=== PATIENT | male | born 1940 | race Caucasian/White ===

== ENCOUNTER 2019-08-23 12:56 | Emergency (ER) | payer BC, MEDICARE ==
[2019-08-23 13:49] VITALS: BP 139/69
[2019-08-23] MEDS ORDERED: Acetaminophen TAB* 325 MG PO ONE (14:48)
--- NOTE | 2019-08-23 15:12 | UC ---
Throat Pain/Nasal Addy HPI - HPI Summary HPI Summary: 78-year-old male comes in with a chief complaint of upper respiratory tract infection symptoms for one week. Started with cough is gotten chest congestion runny nose. He also has a fever today with a fever he became confused. He does have a frontal headache. He has chronic neck pain which he does have today. Denies feeling short of breath. He is here with his who has upper respiratory tract infection symptoms also. - History of Current Complaint Chief Complaint: UCGeneralIllness Stated Complaint: COUGH SORE THROAT Time Seen by Provider: 08/23/19 14:53 Pain Intensity: 0 - Allergies/Home Medications Allergies/Adverse Reactions: Allergies Allergy/AdvReac Type Severity Reaction Status Date / Time aspirin Allergy Bleeding Verified 08/23/19 13:50 Beta-Blockers Allergy Altered Verified 08/23/19 13:50 (Beta-Adrenergic Bloc Mental Status PMH/Surg Hx/FS Hx/Imm Hx Previously Healthy: Yes - Surgical History Surgical History: Yes Surgery Procedure, Year, and Place: shoulder x 2, spinal fusion, cataract - Family History Known Family History: Positive: Non-Contributory - Social History Alcohol Use: Rare Substance Use Type: None Smoking Status (MU): Never Smoked Tobacco Review of Systems All Other Systems Reviewed And Are Negative: Yes Constitutional: Positive: Fever, Other - SEE HPI Skin: Positive: Negative Eyes: Positive: Negative ENT: Positive: Sore Throat, Nasal Discharge, Sinus Congestion, Sinus Pain/ Tenderness Respiratory: Positive: Cough, Other - SEE HPI Cardiovascular: Positive: Negative Gastrointestinal: Positive: Negative Motor: Positive: Negative Neurovascular: Positive: Negative Musculoskeletal: Positive: Negative Neurological: Positive: Headache, Other - SEE HPI Psychological: Positive: Negative Is Patient Immunocompromised?: No Physical Exam Triage Information Reviewed: Yes Appearance: No Pain Distress, Well-Nourished, Ill-Appearing - MILD Vital Signs: Initial Vital Signs Temp 100.1 F 08/23/19 13:45 Pulse 89 08/23/19 13:45 Resp 20 08/23/19 13:45 BP 139/69 08/23/19 13:45 Pulse Ox 97 08/23/19 13:45 Vital Signs Reviewed: Yes Eye Exam: Normal Eyes: Positive: Conjunctiva Clear ENT: Positive: Pharyngeal erythema, Nasal congestion, Nasal drainage, TMs normal Neck: Positive: Supple Respiratory: Positive: No respiratory distress, No accessory muscle use, Rhonchi - RARE Cardiovascular: Positive: RRR Musculoskeletal: Positive: Strength Intact, ROM Intact, No Edema - NO CALF TENDERNESS Neurological: Positive: Alert Psychological: Positive: Other: - Patient has mild confusion. He is awake and alert. Skin Exam: Normal Throat Pain/Nasal Course/Dx - Course Course Of Treatment: DISCUSSED VIRAL VERSES BACTERIAL INFECTIONS AND THE ROLE OF ANTIBIOTICS. THE PATIENT PREFERS TO BE ON ANTIBIOTICS AT THIS TIME. Patient has mild confusion. He is awake and alert. He is not hypoxic. Did have a fever here of 100.1 which was treated with acetaminophen. There was some rhonchi on examination. I discussed about whether or not to get a chest x- ray at this time with the discussion with the patient and his they prefer to be treated initially and then consider an x-ray if not improving or worse. With the know that confusion can be a sign of infection that may need further evaluation emergency Department. I let the patient and the patient's notes that I recommend that if his confusion is not clear when his fever comes down he should go to the emergency department. I also recommended that if he appears short of breath or appears ill they should go to the emergency department. Otherwise following up with the primary care doctor. - Differential Dx/Diagnosis Provider Diagnosis: Sinusitis, Bronchitis Discharge ED - Sign-Out/Discharge Documenting (check all that apply): Patient Departure All imaging exams completed and their final reports reviewed: No Studies - Discharge Plan Condition: Stable Disposition: HOME Prescriptions: DOXYcycline CAP(*) [DOXYcycline 100MG CAP(*)] 100 mg PO BID #20 cap Patient Education Materials: Sinusitis (ED), Acute Bronchitis (ED) Referrals: [facility] [place] [facility]ICIAN REFERRAL [Outside] Additional Instructions: FOLLOW UP WITH YOUR DOCTOR. GO TO THE EMERGENCY DEPARTMENT IF NOT IMPROVED OR WORSE; SHORTNESS OF BREATH, CONFUSION, ILL APPEARANCE OR ANY QUESTIONS OR CONCERNS. - Billing Disposition and Condition Condition: STABLE Disposition: Home
== END 2019-08-23 15:30 | disposition home or self-care (01) ==
LOC: UCEAST 12:56
DX: J32.9 Chronic sinusitis, unspecified (principal); J40 Bronchitis, not specified as acute or chronic; G89.29 Other chronic pain; M54.2 Cervicalgia; Z88.6 Allergy status to analgesic agent; Z88.8 Allergy status to other drugs, medicaments and biological substances
CPT/HCPCS: 99202; A9270-GY; G0463

== ENCOUNTER 2019-08-23 22:23 | Observation (INO) | payer MEDICARE ==
[2019-08-23] MEDS ORDERED: NS 0.9% 1000 ML** 1,000 ML IV.FLUID IV ONE (23:11)
[2019-08-23] MEDS ORDERED: Acetaminophen TAB* 325 MG PO ONE (23:13)
--- NOTE | 2019-08-23 23:14 | ED ---
Complex/Multi-Sys Presentation - HPI Summary HPI Summary: 78-year-old male presents with cough for the past couple days. He noted a fever today. He was having increasing confusion per . states been having difficulty with word finding since fever spiked. He states he is very weak. He states that he did have chest but that has resolved. He states he is short of breath when he coughs. Has been a productive cough. He states he's had no appetite. Has not taken his pills today. He was seen at urgent care today and started on doxycycline and no imaging was done. is also sick. He denies any urinary symptoms. no abdominal pain. no diarrhea. admits to headache. no history of asthma or copd. is not a smoker. - History Of Current Complaint Chief Complaint: EDAltMentalStatus Time Seen by Provider: 08/23/19 22:54 - Allergies/Home Medications Allergies/Adverse Reactions: Allergies Allergy/AdvReac Type Severity Reaction Status Date / Time aspirin Allergy Bleeding Verified 08/23/19 13:50 Beta-Blockers Allergy Altered Verified 08/23/19 13:50 (Beta-Adrenergic Bloc Mental Status Home Medications: Home Medications Diclofenac Sodium 1 applic TOPICAL DAILY PRN 08/24/19 [History Confirmed ] Omeprazole 20 mg PO DAILY 08/24/19 [History Confirmed 08/24/19] Tramadol HCl 1 tab PO TID PRN 08/24/19 [History Confirmed 08/24/19] Vit A/Vit C/Vit E/Zinc/Copper [Preservision Areds Softgel] 1 each PO DAILY 08/24 [History Confirmed 08/24/19] amLODIPine TAB* [Norvasc 5 mg TAB*] 5 mg PO DAILY 08/24/19 [History Confirmed ] lisinopriL [Lisinopril] 20 mg PO DAILY 08/24/19 [History Confirmed 08/24/19] PMH/Surg Hx/FS Hx/Imm Hx Endocrine/Hematology History: Denies: Hx Anticoagulant Therapy Cardiovascular History: Reports: Hx Hypertension - Surgical History Surgery Procedure, Year, and Place: shoulder x 2, spinal fusion, cataract Infectious Disease History: No Infectious Disease History: Denies: Traveled Outside the [place] in Last 30 Days - Family History Known Family History: Positive: Non-Contributory - Social History Alcohol Use: Rare Substance Use Type: Reports: None Smoking Status (MU): Never Smoked Tobacco Review of Systems Positive: Fever, Chills Positive: Chest Pain - resolved Positive: Shortness Of Breath, Cough Positive: Nausea Neurological: Other - confusion Positive: Weakness All Other Systems Reviewed And Are Negative: Yes Physical Exam Triage Information Reviewed: Yes Vital Signs On Initial Exam: Initial Vitals Temp Pulse Resp BP Pulse Ox 101.1 F 104 20 138/94 91 08/23/19 22:41 08/23/19 22:41 08/23/19 22:41 08/23/19 22:41 08/23/19 22:41 Vital Signs Reviewed: Yes Appearance: Positive: Ill-Appearing Skin: Positive: Warm, Dry Head/Face: Positive: Normal Head/Face Inspection Eyes: Positive: Normal, EOMI, KALANI, Conjunctiva Clear ENT: Positive: Pharynx normal, TMs normal Respiratory/Lung Sounds: Positive: Breath Sounds Present, Other - crackles throughout Cardiovascular: Positive: Normal, RRR Abdomen Description: Positive: Nontender, Soft Bowel Sounds: Positive: Present Musculoskeletal: Positive: Normal Neurological: Positive: Sensory/Motor Intact, Alert, Oriented to Person Place, Time, CN Intact II-III Psychiatric: Positive: Normal Procedures - Sedation Patient Received Moderate/Deep Sedation with Procedure: No Diagnostics - Vital Signs Vital Signs Temp Pulse Resp BP Pulse Ox 08/23/19 22:41 101.1 F 104 20 138/94 91 - Laboratory Result Diagrams: 08/23/19 23:15 08/23/19 23:15 Lab Statement: Any lab studies that have been ordered have been reviewed, and results considered in the medical decision making process. - Radiology chest Radiology Interpretation Completed By: ED Physician Summary of Radiographic Findings: possible pnuemonia - CT brain CT Interpretation Completed By: Radiologist Summary of CT Findings: IMPRESSION: No acute intracranial abnormality. - EKG No standard instances Cardiac Rate: Tachycardia EKG Rhythm: Sinus Tachycardia Summary of EKG Findings: sinus tachycardia Re-Evaluation - Re-Evaluation First Eval Re-Evaluation Time: 23:45 Comment: discussed results, crackles still noted on exam, patient is more alert now that fever decreased Complex Multi-Symp Course/Dx Course Of Treatment: 78-year-old male presents with cough for the past couple days. had a fever and has been having increasing confusion per . states been having difficulty with word finding since fever spiked. He states he is very weak. He states that he did have chest pain but that has resolved. He states he is short of breath when he coughs. Has been a productive cough. is also sick. On exam has a normal neuro exam. He is slow to answer questions but does so appropriately. No neuro deficit noted. lungs crackles throughout. has productive cough noted and patient appears ill. gave fluids and Tylenol. wbc 24. troponin .03. sodium 127. bnp normal. urine no infection. Chest x-ray shows potential pneumonia. gave rocephin and azithromycin. required some oxygen support as stats are in high 80s to 90s without so placed on 2 liters. was initially tachycardia and had fever which resolved with fluids and tyenlol. influenza neg. CT brain normal. AMS likely due to febrile illness as became more alert as fever came down. will admit for pneumonia and sepsis - Diagnoses Differential Diagnoses/HQI/PQRI: Sepsis, Urinary Tract Infection, Other - pnuemonia Provider Diagnoses: Pneumonia, Sepsis, Confusion - Critical Care Time Critical Care Time: 30-74 min - 45 mins Discharge ED - Sign-Out/Discharge Documenting (check all that apply): Patient Departure - Discharge Plan Condition: Stable Disposition: ADMITTED TO [facility] - Billing Disposition and Condition Condition: STABLE Disposition: Admitted to [facility]
[2019-08-23 23:29] LABS: Hematocrit 34 % (42-52); Hemoglobin 12.4 g/dL (14.0-18.0); Mean Corpuscular HGB Conc 36 g/dL (31-36); Mean Corpuscular Hemoglobin 34 pg (27-31); Mean Corpuscular Volume 94 fL (80-94); Mean Platelet Volume 6.7 fL (7.4-10.4); Platelet Count 409 10^3/uL (150-450); Red Blood Count 3.64 10^6 /uL (4.18-5.48); Red Cell Distribution Width 13 % (10-15); White Blood Count 24.6 10^3/uL (3.5-10.8)
[2019-08-23 23:42] LABS: INR 1.25 (0.82-1.09)
[2019-08-23 23:49] LABS: ALT 21 U/L (7-52); AST 24 U/L (13-39); Albumin 3.8 g/dL (3.2-5.2); Albumin/Globulin Ratio 1.3 (1-3); Alkaline Phosphatase 72 U/L (34-104); Anion Gap 8 mmol/L (2-11); BUN/Creatinine Ratio 14.9 (8-20); Blood Urea Nitrogen 13 mg/dL (6-24); CO2 Carbon Dioxide 23 mmol/L (22-32); Calcium 8.6 mg/dL (8.6-10.3); Chloride 96 mmol/L (101-111); EGFR African American 102.2 (>60); EGFR Non-African American 84.4 (>60); Globulin 2.9 g/dL (2-4); Glucose 125 mg/dL (70-100); Potassium 3.9 mmol/L (3.5-5.0); Sodium 127 mmol/L (135-145); Total Protein 6.7 g/dL (6.4-8.9)
[2019-08-23 23:50] LABS: Urine Appearance Clear; Urine Bilirubin Negative (Negative); Urine Blood 1+ (Negative); Urine Color Yellow; Urine Glucose Negative (Negative); Urine Ketones Trace (Negative); Urine Nitrite Negative (Negative); Urine Protein Negative (Negative); Urine Specific Gravity 1.014 (1.010-1.030); Urine Urobilinogen Negative (Negative)
[2019-08-23 23:52] LABS: Urine Bacteria Absent (Absent); Urine Red Blood Cell 2+(6-10/hpf) (Absent); Urine White Blood Cell Absent (Absent)
[2019-08-23 23:53] LABS: Troponin I 0.03 ng/mL (<0.03)
[2019-08-24 00:03] LABS: Influenza A Molecular NEGATIVE (Negative); Influenza B Molecular NEGATIVE (Negative)
[2019-08-24 00:03] LABS: ABS Basophils 0.1 10^3/ul (0-0.2); ABS Lymphocytes 0.9 10^3/ul (1.0-4.8); ABS Monocytes 1.8 10^3/ul (0-0.8); ABS Neutrophils 21.8 10^3/ul (1.5-7.7); Lymphocyte % 3.7 %
[2019-08-24] MEDS ORDERED: cefTRIAXone(*) 1 GM in NS 0.9% 50 ML* 50 ML IVPB ONE (00:06)
[2019-08-24] MEDS ORDERED: Azithromycin 500 mg/250 ml NS 500 MG/250 ML BAG IVPB ONE (00:06)
[2019-08-24] MEDS ORDERED: Acetaminophen TAB* 325 MG PO PRN (00:59)
[2019-08-24] MEDS ORDERED: Albuterol/Ipratropium NEB.SOL* Albuterol 2.5 MG/Ipratropium 0.5 MG 3 ML INH PRN (00:59)
--- NOTE | 2019-08-24 01:29 | HP ---
History of Present Illness - History of Present Illness Reason for Visit: Fever for 1 day, too weak to stand up History of Present Illness: Jassi Andrews is a 78 y/o male with history of HTN, distant hx of PUD, presented to hospital for fever and confusion. He had been having productive cough for 1 week duration, and today he had high fever and chills. He went to urgent care initially, was given doxycyline, took one pill. This evening, stated that he was very confused and couldn't tell where he was, and he was so weak that he couldn't get out of the bathtub, therefore she brought her in. They were originally from [place], [place], and here to visit their daughter and grandkids since last Thursday. Does have sick contacks, everyone is catching some germs in the family, grandkids are getting eye and ear infection, is having some conjunctivitis and running nose, and patient himself is coughing. When I saw the patient at 1am, patient was almost back to baseline, was able to give me history and do med reconciliation. He still complained of bad productive cough, greenish and yellowish sputum was described. He denied congested nose, ear pain , but did admit malaise and generalized weakness. He had one episode of chest pain when he was coughing, but not now, denied palpitation or SOB. In ED, patient had fever T 101, and O2 sat 88%, thus requiring O2. Labs notable for Leukocytosis to 24, HyPONa, CXR without focal consolidatoin. He was given one dose of ceftriaxone and azithromycin and 2L NS bolus. Hospitalist was asked to admit pt for diagnosis of sepsis. - Past Medical History Past Medical History: 1. HTN 2. R eye macular degeneration 3. PUD - Past Surgical History Past Surgical History: 1. Shoulder surgery bilateral- rotator cuff surgery 2. spinal fusion 3. cataract surgery - Past Family History Past Family History: Father from some kind of cancer at age 78, mother from heart disease at 80s. Brother has heart attack at 80s. - Past Social History Past Social History: Non smoker, no Etoh use, no drug use. 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 Resides in [place], [place]. Primary care is [facility], number is [phone]. Medications: Home Medications Medication Instructions Recorded Confirmed Type DOXYcycline CAP(*) [DOXYcycline 100 mg PO BID #20 cap 08/23/19 08/24/19 Rx 100MG CAP(*)] Diclofenac Sodium 1 applic TOPICAL DAILY PRN 08/24/19 08/24/19 History Omeprazole 20 mg PO DAILY 08/24/19 08/24/19 History Tramadol HCl 1 tab PO TID PRN 08/24/19 08/24/19 History Vit A/Vit C/Vit E/Zinc/Copper 1 each PO DAILY 08/24/19 08/24/19 History [Preservision Areds Softgel] amLODIPine TAB* [Norvasc 5 mg TAB*] 5 mg PO DAILY 08/24/19 08/24/19 History lisinopriL [Lisinopril] 20 mg PO DAILY 08/24/19 08/24/19 History Allergies/Adverse Reactions: Allergies Allergy/AdvReac Type Severity Reaction Status Date / Time aspirin Allergy Bleeding Verified 08/23/19 13:50 Beta-Blockers Allergy Altered Verified 08/23/19 13:50 (Beta-Adrenergic Bloc Mental Status Review of Systems - Review of Systems Constitutional: Positive: Fever, Chills, Weakness, Malaise Eyes: Negative: Pain, Vision Change, Conjunctivae Inflammation, Eyelid Inflammation, Redness, Other ENT: Negative: Ear Pain, Ear Discharge, Nose Pain, Nose Discharge, Nose Congestion, Mouth Pain, Mouth Swelling, Throat Pain, Throat Swelling, Other Respiratory: Positive: Cough, Shortness of Breath, Sputum Cardiovascular: Negative: Chest Pain, Palpitations, Orthopnea, Paroxysmal Noc. Dyspnea, Edema, Light Headedness, Other Gastrointestinal: Negative: Nausea, Vomiting, Abdominal Pain, Diarrhea, Constipation, Melena, Hematochezia, Other Genitourinary: Negative: Dysuria, Frequency, Incontinence, Hematuria, Retention , Other Musculoskeletal: Negative: Neck Pain, Shoulder Pain, Arm Pain, Back Pain, Hand Pain, Leg Pain, Foot Pain, Other Skin: Negative: Rash, Lesions, Jorje, Bruising, Other Neurological: Negative: Weakness, Numbness, Incoordination, Change in Speech, Confusion, Seizures, Other Exam Vital Signs: Vital Signs (72 hours) 08/23/19 08/23/19 08/23/19 22:41 22:49 22:52 Temperature 101.1 F Pulse Rate 104 94 94 Respiratory 20 31 25 Rate Blood Pressure 138/94 141/73 (mmHg) O2 Sat by Pulse 91 90 88 Oximetry 08/23/19 08/23/19 08/23/19 23:00 23:22 23:54 Temperature Pulse Rate 88 89 Respiratory 30 31 Rate Blood Pressure 140/72 (mmHg) O2 Sat by Pulse 93 92 95 Oximetry 08/24/19 08/24/19 08/24/19 00:05 00:18 00:19 Temperature Pulse Rate 82 94 Respiratory 24 29 Rate Blood Pressure 143/73 (mmHg) O2 Sat by Pulse 94 93 Oximetry 08/24/19 08/24/19 00:22 00:37 Temperature 99.3 F Pulse Rate 93 Respiratory 29 Rate Blood Pressure 140/65 (mmHg) O2 Sat by Pulse 93 Oximetry Exam: Appearance: comfortable, not in acute distress Eyes: sclera anicteric, no conjunctival pallor ENT: mucous membranes moist, pharynx not erythematous, tonsils not enlarged, no exudates Respiratory: coarse breathing sound but no decreased air entry, no signs of respiratory distress, E wheeze Cardiovascular: Normal S1, S2. No murmurs Abdomen: Soft, non tender, BS+ Extremity: pulse well palpated, no calf tenderness Skin: no rashes Neurological: A&Ox3, awake and alert, mentation is normal, speech is fluent and appropriate Psychiatric: affect is normal, does not appear anxious or depressed Result Diagrams: 08/23/19 23:15 08/23/19 23:15 Additional Lab and Data: Trop 0.03 Microbiology and Other Data: Influenza neg Diagnostic Imaging: Ct brain : normal EKG Data: EKG: sinus tachy at 103, all intervals normal, no st-t changes Assessment/Plan - Assessment/Plan Assessment: Jassi Andrews is a 78 y/o male with history of HTN, PUD, presented to hospital for fever and confusion after 1 week duration of productive cough. He was found to have leukocytosis, fever meeting criteria for sepsis with normal CXR. He is likely having acute viral vs bacterial bronchitis with a normal CXR, and his confusion was actually totally resolved after resolution of his fever. We are admitting him as he still requires 2L O2 in ED, and his trop is mildly elevated without EKG changes. We will admit him for observation overnight. Plan: 1. Acute bronchitis - wean down o2, keep spO2>95% - IV ceftriaxone and azithromycin - Tessalon for cough, nebulizer - trace blood culture - if he stays well overnight an able to wean off O2 , he could get discharged tomorrow 2. Sepsis: Elevated HR, fever and leukocytosis with likely source PNA - No e/o shock, normal lactic acid - sp fluid resuscitation and abx 3. Elevated Trop - no EKG changes - no cardiac symptoms, likely related to his acute illness - will trend trop one set 4. HTN - continue old med 5. DVT prophylaxis - sc Lovenox 6. Code- Full 7. Dispo-Obs, likely stable for d/c in AM Attestation Documenting Resident: Sherley Wilks Supervising Physician: Nadeen Whitmore Attending/Supervising Physician Comment: Agree with resident findings, assessment and plan which I supervised 78 M visiting from [facility] who presented with high fever and cough, meeting sepsis criteria, likely 2/2 to viral (non flu) vs bacterial bronchitis -Admit overnight and if continues to be well may be able to d/c on oral abx and inhalers on 08/24 Attestation: This service has been performed in part by a resident under the direction of a teaching physician.I, Nadeen Whitmore, performed the service, or was physically present during the critical, or modi portions of the service, furnished by the resident. I participated in the management of the patient.
[2019-08-24] MEDS: Benzonatate CAP* 100 MG PO PRN ×2 (02:42→08:41)
[2019-08-24] MEDS: traMADol TAB* 50 MG PO PRN ×2 (02:42→16:48)
[2019-08-24] MEDS: Enoxaparin(*) 40 MG/0.4 ML SYR SUBCUT SCH (05:37)
[2019-08-24 06:33] LABS: Hematocrit 33 % (42-52); Hemoglobin 11.3 g/dL (14.0-18.0); Mean Corpuscular HGB Conc 35 g/dL (31-36); Mean Corpuscular Hemoglobin 33 pg (27-31); Mean Corpuscular Volume 95 fL (80-94); Mean Platelet Volume 6.7 fL (7.4-10.4); Platelet Count 375 10^3/uL (150-450); Red Blood Count 3.44 10^6 /uL (4.18-5.48); Red Cell Distribution Width 13 % (10-15); White Blood Count 24.6 10^3/uL (3.5-10.8)
[2019-08-24 06:38] LABS: ABS Basophils 0.1 10^3/ul (0-0.2); ABS Lymphocytes 2.1 10^3/ul (1.0-4.8); ABS Monocytes 1.6 10^3/ul (0-0.8); ABS Neutrophils 20.8 10^3/ul (1.5-7.7); Eosinophil % 0.1 %; Lymphocyte % 8.5 %
[2019-08-24 06:55] LABS: BUN/Creatinine Ratio 13.3 (8-20); Calcium 8.2 mg/dL (8.6-10.3); EGFR African American 107.9 (>60); EGFR Non-African American 89.1 (>60)
[2019-08-24] MEDS: amLODIPine TAB* 5 MG PO SCH (08:41)
[2019-08-24] MEDS: Pantoprazole TAB * 40 MG TAB PO SCH (08:41)
[2019-08-24] MEDS: Multivitamins/Minerals TAB PO SCH (08:41)
[2019-08-24] MEDS: Lisinopril TAB* 10 MG PO SCH (08:41)
--- NOTE | 2019-08-24 15:25 | PN ---
Progress Note - Progress Note Date of Service: 08/24/19 Note: Brief follow up after admission early this AM: Jassi is seen this afternoon. He was sleeping when I entered his room. He awakened easily to voice. He states overall he is feeling much better than when he presented to the ER. He has only ambulated from bed to bathroom and typically he will walk much more than that. He continues to have a harsh productive cough. He has mild SOB. Labs from this AM indicate that his WBC count is still elevated. His troponin was not followed up yet. He denies any chest pain. It is likely that he has pneumonia given CXR findings, fever and productive cough. Will ask for sputum culture and urine for S pneumoniae and legionella antigens.
[2019-08-24 15:53] LABS: Troponin I 0.03 ng/mL (<0.03)
[2019-08-24] MEDS ORDERED: GuaiFENesin DM 100 mg/10 mg in 5 ML UDC PO PRN (17:13)
[2019-08-25] MEDS ORDERED: cefTRIAXone(*) 1 GM in NS 0.9% 50 ML* 50 ML IVPB SCH ×2
[2019-08-25] MEDS ORDERED: Azithromycin 500 mg/250 ml NS 500 MG/250 ML BAG IVPB SCH (00:30)
[2019-08-25] MEDS: Benzonatate CAP* 100 MG PO PRN (00:52)
[2019-08-25] MEDS: Enoxaparin(*) 40 MG/0.4 ML SYR SUBCUT SCH (06:02)
[2019-08-25 06:08] LABS: ABS Basophils 0.1 10^3/ul (0-0.2); ABS Eosinophils 0.2 10^3/ul (0-0.6); ABS Lymphocytes 2.3 10^3/ul (1.0-4.8); ABS Monocytes 1.5 10^3/ul (0-0.8); ABS Neutrophils 14.6 10^3/ul (1.5-7.7); Eosinophil % 0.8 %; Hematocrit 31 % (42-52); Hemoglobin 11.3 g/dL (14.0-18.0); Lymphocyte % 12.1 %; Mean Corpuscular HGB Conc 36 g/dL (31-36); Mean Corpuscular Hemoglobin 34 pg (27-31); Mean Corpuscular Volume 95 fL (80-94); Nucleated Red Blood Cells % 0.1; Platelet Count 446 10^3/uL (150-450); Red Cell Distribution Width 13 % (10-15); White Blood Count 18.6 10^3/uL (3.5-10.8)
[2019-08-25 06:27] LABS: Troponin I 0.04 ng/mL (<0.03)
--- NOTE | 2019-08-25 08:38 | PN ---
Subjective Date of Service: 08/25/19 Interval History: Pt is feeling ok but still not 100%. He is coughing less. He is not SOB. No diarrhea. He thinks he will go back to his daughter's house tonight and leave for [place] tomorrow. Objective Active Medications: Acetaminophen (Tylenol Tab*) 650 mg PO Q4H PRN PRN Reason: TEMPERATURE > 100.4 Albuterol/Ipratropium (Duoneb (Albuterol 2.5 Mg/Ipratropium 0.5 Mg)) 1 neb INH [id number] AWAKE PRN PRN Reason: sob/wheexing Amlodipine Besylate (Norvasc Tab*) 5 mg PO DAILY [facility] Last Admin: 08/24/19 08:41 Dose: 5 mg Benzonatate (Tessalon Cap*) 100 mg PO BID PRN PRN Reason: COUGH Last Admin: 08/25/19 00:52 Dose: 100 mg Enoxaparin Sodium (Lovenox(*)) 40 mg SUBCUT Q24H [facility] Last Admin: 08/25/19 06:02 Dose: 40 mg Guaifenesin/Dextromethorphan (Robitussin Dm 100 Mg/10 Mg In 5 Ml) 10 ml PO Q4H PRN PRN Reason: COUGH Azithromycin (Zithromax 500 Mg/250 Ml) 500 mg in 250 mls @ 250 mls/hr IVPB Q24H [facility] Stop: 08/27/19 00:29 Last Admin: 08/25/19 00:48 Dose: 250 mls/hr Ceftriaxone Sodium 1 gm/ (Sodium Chloride) 50 mls @ 100 mls/hr IVPB Q24H [facility] Last Admin: 08/24/19 23:47 Dose: 100 mls/hr Lisinopril (Prinivil Tab*) 20 mg PO DAILY [facility] Last Admin: 08/24/19 08:41 Dose: 20 mg Multivitamins/Minerals (Theragran/Minerals Tab*) 1 tab PO DAILY [facility] Last Admin: 08/24/19 08:41 Dose: 1 tab Pantoprazole Sodium (Protonix Tab*) 40 mg PO DAILY [facility] Last Admin: 08/24/19 08:41 Dose: 40 mg Tramadol HCl (Ultram*) 50 mg PO TID PRN PRN Reason: PAIN - MODERATE Last Admin: 08/24/19 16:48 Dose: 50 mg Vital Signs - 8 hr 08/25/19 03:10 Temperature 98.4 F Pulse Rate 82 Respiratory 16 Rate Blood Pressure 121/51 (mmHg) O2 Sat by Pulse 97 Oximetry Oxygen Devices in Use Now: None Appearance: Elderly male sitting up on the edge of the bed, NAD Eyes: No Scleral Icterus Ears/Nose/Mouth/Throat: Mucous Membranes Moist Respiratory: Symmetrical Chest Expansion and Respiratory Effort, Clear to Auscultation - coarse breath sounds at the L base Cardiovascular: RRR, No Edema, - - II/ systolic murmur Abdominal: NL Sounds; No Tenderness; No Distention Extremities: No Clubbing, Cyanosis Skin: No Nodules or Sclerosis Neurological: Alert and Oriented x 3 Result Diagrams: 08/25/19 05:34 08/24/19 06:16 Additional Lab and Data: Trop 0.03 Microbiology and Other Data: Influenza neg Diagnostic Imaging: Ct brain : normal EKG Data: EKG: sinus tachy at 103, all intervals normal, no st-t changes Assess/Plan/Problems-Billing Mr Andrews is an 78 yo M who has a h/o HTN and macular degeneration who presented to the ER with confusion, fever and weakness and was admitted for bronchitis vs pneumonia. - Patient Problems (1) RLL pneumonia Current Visit: Yes Status: Acute Code(s): J18.9 - PNEUMONIA, UNSPECIFIED ORGANISM SNOMED Code(s): 543086815 Comment: I am suspicious the patient has a RLL pneumonia as the patient has a possible infiltrate on CXR, cough, sputum and fever. Will continue on vantin and azithromycin to complete treatment. Will also send Rx for tessalon for cough. (2) Elevated troponin Current Visit: Yes Status: Acute Code(s): R79.89 - OTHER SPECIFIED ABNORMAL FINDINGS OF BLOOD CHEMISTRY SNOMED Code(s): 942277236 Comment: Likely demand ischemia. No c/o chest pain at all during this illness. Will get one more troponin as last was slightly higher than last but if stable pt can go home without further testing. 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 He has reported allergies to ASA and beta blockers. (3) HTN (hypertension) Current Visit: Yes Status: Acute Code(s): I10 - ESSENTIAL (PRIMARY) HYPERTENSION SNOMED Code(s): 37468353 Comment: BP is under good control. Continue amlodipine and lisinopril. (4) DVT prophylaxis Current Visit: Yes Status: Acute Code(s): Z29.9 - ENCOUNTER FOR PROPHYLACTIC MEASURES, UNSPECIFIED SNOMED Code(s): 251697834 Comment: lovenox (5) Full code status Current Visit: Yes Status: Acute Code(s): Z78.9 - OTHER SPECIFIED HEALTH STATUS SNOMED Code(s): 251482499
[2019-08-25] MEDS: Lisinopril TAB* 10 MG PO SCH (09:06)
[2019-08-25] MEDS: Multivitamins/Minerals TAB PO SCH (09:06)
[2019-08-25] MEDS: traMADol TAB* 50 MG PO PRN (09:07)
[2019-08-25] MEDS: Pantoprazole TAB * 40 MG TAB PO SCH (09:07)
[2019-08-25] MEDS: amLODIPine TAB* 5 MG PO SCH (09:08)
[2019-08-25 10:12] LABS: Troponin I 0.03 ng/mL (<0.03)
[2019-08-25 12:14] VITALS: BP 108/75
--- NOTE | 2019-08-25 21:01 | DS ---
CC: Dr. Amato, [place], [place] - phone [phone], fax [phone] * DISCHARGE SUMMARY: DATE OF ADMISSION: 08/24/19 DATE OF DISCHARGE: 08/25/19 PRIMARY CARE PROVIDER: Unknown PRINCIPAL DIAGNOSES: 1. Probable right lower lobe pneumonia. 2. Elevated troponin indicating demand ischemia. SECONDARY DIAGNOSIS: Hypertension. DISCHARGE MEDICATIONS: 1. PreserVision AREDS 1 cap p.o. daily. 2. Amlodipine 5 mg p.o. daily. 3. Tramadol 50 mg p.o. t.i.d. p.r.n. pain. 4. Omeprazole 20 mg p.o. daily. 5. Lisinopril 20 mg p.o. daily. 6. Doxycycline 100 mg p.o. b.i.d. x5 days. 7. Vantin 200 mg p.o. q.12 hours x5 days. 8. Tessalon 100 mg p.o. t.i.d. p.r.n. cough. HOSPITAL COURSE: Mr. Andrews is an 78-year-old male who has a history of hypertension and macular degeneration, is visiting from [place], [place] , who initially presented to urgent care and given a prescription for doxycycline for concerns of bronchitis. Unfortunately, the patient developed high fever and weakness. The patient did have significant sick contacts. He was also noted to be confused. The patient was admitted for possible bronchitis , however, ultimate read on chest x-ray by Radiology indicate a possible right lower lobe infiltrate. Given the patient's high fever, cough, sputum production , and abnormal chest x-ray, it is my suspicion that the patient in fact did have a right lower lobe pneumonia. His white blood cell count was markedly elevated at 24,600 on admission. This trended down to 18,600 by the day of discharge. The patient also was found to have a mildly elevated troponin of 0.03. This stayed relatively stable over the course of 4 reads. The patient had no associated chest pain throughout the entire hospitalization. Given there was no chest pain, the thought is this likely represents demand ischemia. The patient has an allergy to ASPIRIN and BETA BLOCKERS, so these were not initiated. He was otherwise maintained on his usual dose of lisinopril. 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 Amato, in 1 to 2 weeks. Overall, the patient is feeling improved but not 100%. He is due to go back to [place], [place] , however, believed that he will be staying the night at his daughter's tonight and leaving tomorrow to go back home. The patient's mental status is now back to baseline. He has been up and ambulating without any significant shortness of breath, hypoxia, or difficulty. FOLLOWUP CONCERNS: The patient is being discharged home today, 08/25/19. Activity level is as tolerated. Diet is heart healthy. CONDITION ON DISCHARGE: Stable. The patient has been instructed to follow up with his primary care provider in the next 4 to 7 days and with his casino operations supervisor in the next 1 to 2 weeks. TIME SPENT: Thirty-five minutes was spent discharging this patient. [id number] #: [id number] MTDD
== END 2019-08-25 12:10 | disposition home or self-care (01) ==
LOC: ED 22:23 → MED 08-24 00:59
PROVIDERS: ADMIT Internal Medicine; ATTEND Hospitalist
DX: J18.9 Pneumonia, unspecified organism (principal); I24.8 Other forms of acute ischemic heart disease; I10 Essential (primary) hypertension; J20.9 Acute bronchitis, unspecified; R05 Cough; R50.9 Fever, unspecified; R06.02 Shortness of breath; R11.10 Vomiting, unspecified; Z79.899 Other long term (current) drug therapy; R00.0 Tachycardia, unspecified; R79.89 Other specified abnormal findings of blood chemistry
CPT/HCPCS: 36415; 70450; 71045; 80048; 80053; 81003; 81015; 83605; 83880; 84484; 85025; 85610; 85730; 87040; 87070; 87077; 87205; 87899; 93005; 96365; 96367; 96372; 96375; 99285; A9270-GY; G0378; J0456; J0696; J1650